=== PATIENT | male | born 1965 | race Hispanic/Latino ===

== ENCOUNTER 2019-08-09 07:07 | Outpatient (CLI) | payer OTHER ==
--- NOTE | 2019-08-09 08:06 | ULT ---
ULTRASOUND GALLBLADDER RIGHT UPPER QUADRANT. CLINICAL HISTORY: Two and a half weeks of epigastric pain. Past medical history of pancreatitis.. COMPARISON: None. FINDINGS: Pancreas: Obscured by bowel gas. Liver:1.4 x 1.4 x 1.4 cm hypoechoic focus in the right hepatic lobe. Remainder of the hepatic parench yma demonstrates heterogeneous attenuation which may be due to hepatic steatosis or hepatocellular disease. Right hepatic lobe measures 16.8 cm. Gallbladder: No sonographic evidence of cholelithiasis, gallbladder wall thickening or pericholecysti c fluid. Davey's sign:Negative. Portal Vein: Patent. Appropriate directional flow. Bile ducts: Poorly identified common bile duct. Right kidney: No hydronephrosis. Right kidney measures 6.4 x 6.2 x 12.7 cm in length. IMPRESSION: 1. Heterogeneous attenuation of the liver which may be due to hepatic steatosis or hepatocellular dis ease. Hypoechoic focus in the right hepatic lobe may represent focal sparing. Mass lesion cannot be excluded. Correlation made with stone CT 03/05/2013 does demonstrate areas of fatty sparing in the live r. 2. No evidence of cholelithiasis or cholecystitis. 3. Suboptimal evaluation of the common bile duct. Transcribed Date/Time: 08/09/2019 8:22 AM
== END 2019-08-09 07:08 | disposition home or self-care (01) ==
LOC: BICULT 07:07
PROVIDERS: ATTEND Family Medicine
DX: R10.13 Epigastric pain (principal); R93.2 Abnormal findings on diagnostic imaging of liver and biliary tract
CPT/HCPCS: 76705

== ENCOUNTER 2020-02-16 14:24 | Outpatient (CLI) | payer OTHER ==
--- NOTE | 2020-02-16 14:55 | RAD ---
THORACIC SPINE 2 VIEWS: HISTORY: Pain in thoracic spine. COMPARISON: Radiograph 10/14/2018. FINDINGS: No acute fracture of the thoracic spine. Multilevel bridging lateral osteophytes. Posterior roots are intact. IMPRESSION: No acute osseous abnormality. POS: HOME
== END 2020-02-16 14:25 | disposition home or self-care (01) ==
LOC: BICRAD 14:24
PROVIDERS: ATTEND Physician Assistant
DX: M54.6 Pain in thoracic spine (principal)
CPT/HCPCS: 72070